=== PATIENT | male | born 1995 | race African-American/Black ===

== ENCOUNTER 2018-04-02 12:23 | Emergency (ER) | payer SELFPAY | END 2018-04-02 13:32 | disposition left against medical advice (07) | LOC: BURERS 12:23 | DX: Z53.21 Procedure and treatment not carried out due to patient leaving prior to being seen by health care provider (principal) ==

== ENCOUNTER 2022-04-22 14:25 | Emergency (ER) | payer BC, SELFPAY ==
[2022-04-22] MEDS ORDERED: Morphine 2 MG/ML VIAL ONE (14:47)
== END 2022-04-22 15:58 | disposition home or self-care (01) ==
LOC: BURERS 14:25
DX: T25.232A Burn of second degree of left toe(s) (nail), initial encounter (principal); F17.210 Nicotine dependence, cigarettes, uncomplicated; X11.8XXA Contact with other hot tap-water, initial encounter
CPT/HCPCS: 96372; 99282; J2272